=== PATIENT | female | born 1975 | race Caucasian/White ===

== ENCOUNTER 2017-12-21 01:45 | Emergency (ER) | payer MEDICAID, OTHER ==
[~2017-12-21] VITALS: Ht 152.4 cm; Wt 63.6 kg
[~2017-12-21 01:45] MED LIST: ALBU8.5H5 INH; FEXO1TAB29 PO; MONT10TA9 PO; TRIA10.8 INH
[2017-12-21] MEDS ORDERED: PROMETHAZINE 25 MG/ML, 1ML IM ONE (03:00)
[2017-12-21] MEDS ORDERED: SODIUM CHLORIDE 0.9% 1,000ML IVBOLUS ONE (03:00)
[2017-12-21 03:33] LABS: BASOPHILS % (AUTO) 0 % (0-1); EOSINOPHILS % (AUTO) 0 % (1-7); LYMPHOCYTES # (AUTO) 0.55 x10^3/uL (1-3.4); LYMPHOCYTES % (AUTO) 6 % (22-44); MEAN CORPUSCULAR HEMOGLOBIN 27.7 pg (27.0-34.8); MEAN CORPUSCULAR HGB CONC 32.6 g/dL (32.4-35.8); MEAN PLATELET VOLUME 7.4 fL (7.4-10.4); MONOCYTES # (AUTO) 0.37 x10^3/uL (0.2-0.8); MONOCYTES % (AUTO) 4 % (2-9); NEUTROPHILS # (AUTO) 7.87 x10^3/uL (1.8-6.8); NEUTROPHILS % (AUTO) 89 % (42-75); PLATELET COUNT 277 x10^3/uL (130-400); RED CELL DISTRIBUTION WIDTH 18.8 % (9.6-15.2)
[2017-12-21 03:34] LABS: EOSINOPHILS # (AUTO) 0.01 x10^3/uL (0-0.4); MD NO
[2017-12-21 03:35] LABS: HCG UR SG 1.029 (1.003-1.030)
[2017-12-21 03:37] LABS: MICROSCOPIC INDICATED
[2017-12-21 03:43] LABS: ANION GAP 10 mmol/L (5-15); CALCIUM 8.7 mg/dL (8.5-10.1); CHLORIDE 110 mmol/L (98-107); CREATININE 0.68 mg/dL (0.55-1.02)
[2017-12-21] MEDS ORDERED: PROMETHAZINE 25 MG/ML, 1ML ONE (03:45)
[2017-12-21 04:09] LABS: CULTURE INDICATED? YES
[2017-12-21 05:13] VITALS: BP 107/66
== END 2017-12-21 05:15 | disposition home or self-care (01) ==
LOC: ED 03:13
DX: R42 Dizziness and giddiness (principal); E86.0 Dehydration; F17.210 Nicotine dependence, cigarettes, uncomplicated; R82.99 Other abnormal findings in urine
CPT/HCPCS: 36415; 80048; 81001; 81025; 85025; 87086; 93005; 96360; 96372; 99285; J2550; J7030

== ENCOUNTER 2020-06-29 14:39 | Emergency (ER) | payer MEDICAID ==
[~2020-06-29] VITALS: Ht 149.9 cm; Wt 55.0 kg
[~2020-06-29 14:39] MED LIST changes: +MONT10TA11 PO; -MONT10TA9 PO
--- NOTE | 2020-06-29 14:49 | NUR ---
CALLED FOR TRIAGE, NO ANSWER
--- NOTE | 2020-06-29 15:13 | NUR ---
PATIENT WALKED BACK FROM TRIAGE WITH CHIEF C/O SORE THROAT, BODY ACHES, SOB, AND ABD PAIN X3 DAYS. PATIENT WAS SEEN YESTERDAY AT [facility] FOR SAME SYMPTOMS. NO COVID SWAB COLLECTED PER SISTER AT BEDSIDE. PER SISTER PATIENT HAS HX OF ETOH, LAST DRINK WAS THIS MORNING AROUND 1100. PATIENT WAS HAVING SOME ANXIETY TODAY AND WAS GIVEN [address] [facility] PROVIDER, 1 DOSE TAKEN ABOUT AN HOUR AGO PER SISTER. PATIENT IS LYING FACE DOWN ON GURNEY, EASILY AROUSED TO ROLL OVER FOR VITALS. NO SIGNS OF ACUTE DISTRESS.
[2020-06-29] MEDS ORDERED: GABAPENTIN PO (15:27)
[2020-06-29] MEDS ORDERED: SERT25TA3 PO (15:27)
[2020-06-29] MEDS ORDERED: LEVO50TA5 PO (15:27)
[2020-06-29] MEDS ORDERED: OMEP20CA20 PO (15:27)
[2020-06-29] MEDS ORDERED: PROP10TA51 PO (15:27)
--- NOTE | 2020-06-29 15:35 | NUR ---
PATIENT AMBULATED TO RESTROOM WITH ASSISTANCE OF SISTER.
--- NOTE | 2020-06-29 16:03 | NUR ---
REILLY Hook at bedside for evaluation.
--- NOTE | 2020-06-29 16:13 | NUR ---
Break RN note: Pt resting in bed, pt reports position of comfort is lying on her stomach. Pt's resp even and unlabored. Pt's sister at bedside for support.
--- NOTE | 2020-06-29 16:30 | NUR ---
Break RN note: Dr. Hook at bedside to perform COVID swab.
[2020-06-29 17:16] LABS: ALANINE AMINOTRANSFERASE 42 U/L (12-78); ALBUMIN 3.6 g/dL (3.4-5.0); ANION GAP 11 mmol/L (5-15); CALCIUM 8.8 mg/dL (8.5-10.1); CHLORIDE 108 mmol/L (98-107); CREATININE 0.65 mg/dL (0.55-1.02)
[2020-06-29 17:19] LABS: BASOPHILS # (AUTO) 0.01 x10^3/uL (0-0.1); BASOPHILS % (AUTO) 0 % (0-1); EOSINOPHILS # (AUTO) 0.02 x10^3/uL (0-0.4); EOSINOPHILS % (AUTO) 0 % (1-7); LYMPHOCYTES # (AUTO) 2.01 x10^3/uL (1-3.4); LYMPHOCYTES % (AUTO) 42 % (22-44); MD NO; MEAN CORPUSCULAR HGB CONC 31.2 g/dL (32.4-35.8); MONOCYTES # (AUTO) 0.33 x10^3/uL (0.2-0.8); MONOCYTES % (AUTO) 7 % (2-9); NEUTROPHILS # (AUTO) 2.41 x10^3/uL (1.8-6.8); NEUTROPHILS % (AUTO) 50 % (42-75); PLATELET COUNT 304 x10^3/uL (130-400); RED CELL DISTRIBUTION WIDTH 16.8 % (9.6-15.2)
[2020-06-29 17:20] LABS: ALKALINE PHOSPHATASE 117 U/L (45-117); BILIRUBIN,TOTAL 0.3 mg/dL (0.2-1.0); TOTAL PROTEIN 7.3 g/dL (6.4-8.2)
[2020-06-29 17:26] VITALS: BP 120/70
--- NOTE | 2020-06-29 17:26 | NUR ---
PATIENT SLEEPING IN GURNEY, CONNECTED TO VITALS MACHINE, CALL LIGHT WITHIN REACH, SISTER AT BEDSIDE.
--- NOTE | 2020-06-29 18:22 | NUR ---
REILLY POLLOCK AT BEDSIDE TO DISCUSS POC
--- NOTE | 2020-06-29 18:34 | NUR ---
Discharge instructions reviewed.
== END 2020-06-29 18:41 | disposition home or self-care (01) ==
LOC: ED 17:07
DX: F10.220 Alcohol dependence with intoxication, uncomplicated (principal); J45.909 Unspecified asthma, uncomplicated; Z20.828 Contact with and (suspected) exposure to other viral communicable diseases; J02.9 Acute pharyngitis, unspecified; R06.02 Shortness of breath; M79.10 Myalgia, unspecified site; Z90.49 Acquired absence of other specified parts of digestive tract; Y90.0 Blood alcohol level of less than 20 mg/100 ml
CPT/HCPCS: 36415; 71045; 80053; 80307; 85025; 87635; 99284

== ENCOUNTER 2020-09-23 16:04 | Emergency (ER) | payer MEDICAID ==
[~2020-09-23] VITALS: Ht 157.5 cm; Wt 56.0 kg
[~2020-09-23 16:04] MED LIST changes: +GABAPENTIN PO; +LEVO50TA5 PO; -MONT10TA11 PO; +MONT10TA96 PO; +OMEP20CA20 PO; +PROP10TA51 PO; +SERT25TA3 PO
--- NOTE | 2020-09-23 16:30 | NUR ---
PT BIB DAUGHTER VIA POV. PER DAUGHTER PT DRANK 1 BOTTLE OF RUBBING ALCOHOL. PER DAUGHTER PT WAS D/C'D FROM [place] A FEW DAYS AGO FOR SI. PT STATES SHE WAS SUICIDAL YESTERDAY BUT DOES NOT HAVE A PLAN AND DOESN'T WANT TO HURT HERSELF TODAY.
[2020-09-23 16:53] LABS: ALANINE AMINOTRANSFERASE 57 U/L (12-78); ALBUMIN 3.8 g/dL (3.4-5.0); ANION GAP 7 mmol/L (5-15); CALCIUM 9.3 mg/dL (8.5-10.1); CHLORIDE 104 mmol/L (98-107)
--- NOTE | 2020-09-23 16:55 | NUR ---
PT'S DAUGHTER ALSO STATING THAT PT TRIED TO JUMP OUT OF CAR ON THE WAY HERE. [facility] PER PT NO NEEDS. URINE SPECIMEN COLLECTED AND SENT TO LAB, WILL CONTINUE TO MONITOR.
[2020-09-23 16:59] LABS: ALKALINE PHOSPHATASE 103 U/L (45-117); BILIRUBIN,TOTAL 0.7 mg/dL (0.2-1.0); CREATININE 1.81 mg/dL (0.55-1.02); TOTAL PROTEIN 7.2 g/dL (6.4-8.2)
[2020-09-23 17:01] LABS: SALICYLATE LEVEL < 1.7 mg/dL (2.8-20.0)
[2020-09-23 17:05] LABS: BASOPHILS % (AUTO) 0 % (0-1); EOSINOPHILS % (AUTO) 0 % (1-7); LYMPHOCYTES % (AUTO) 20 % (22-44); MEAN CORPUSCULAR HGB CONC 32.6 g/dL (32.4-35.8); MEAN PLATELET VOLUME 7.3 fL (7.4-10.4); MONOCYTES % (AUTO) 5 % (2-9); NEUTROPHILS % (AUTO) 74 % (42-75); PLATELET COUNT 188 x10^3/uL (130-400); RED BLOOD COUNT 4.26 x10^6/uL (3.82-5.3); RED CELL DISTRIBUTION WIDTH 21.4 % (9.6-15.2)
[2020-09-23 17:07] LABS: MICROSCOPIC AUTO
[2020-09-23 17:10] LABS: MD MORPH REVIEW ONLY
[2020-09-23 17:11] LABS: <PLATELET ESTIMATE> ADEQUATE; <PLT MORPHOLOGY> NORMAL PLT MORPH; ANISOCYTOSIS 1+
[2020-09-23 17:15] LABS: AMPHETAMINE SCREEN, URINE Negative (Negative); BARBITURATE SCREEN, URINE Negative (Negative); BENZODIAZEPINE SCREEN, URINE Negative (Negative); CANNABINOID SCREEN, URINE Positive (Negative); COCAINE SCREEN, URINE Negative (Negative); METHADONE SCREEN, URINE Negative (Negative); OPIATE SCREEN, URINE Negative (Negative)
[2020-09-23] MEDS ORDERED: OXYcodone/APAP 10/325MG TABLET ONE (17:59)
[2020-09-23] MEDS ORDERED: POTASSIUM CHLORIDE 20 MEQ PACKET PO ONE (18:00)
[2020-09-23] MEDS ORDERED: POTASSIUM CHLORIDE 40 MEQ in SODIUM CHLORIDE 0.9% 500 ML IV ONE (18:30)
[2020-09-23 18:53] LABS: ACETONE, SERUM Large (80mg/dL) (Negative)
--- NOTE | 2020-09-23 19:40 | NUR ---
TP: PACKET FAXED TO [facility], [facility].
--- NOTE | 2020-09-23 19:45 | NUR ---
AARON RN: [facility] IS FULL AT THIS TIME.
--- NOTE | 2020-09-23 21:50 | NUR ---
RICHAR CASTILLO, CALLED FOR REPORT. GENE STATES PT IS ACCEPTED AND CAN COME ANYTIME AFTER 0100. DR. WRIGHT ACCEPTING.
--- NOTE | 2020-09-23 22:21 | NUR ---
PT RESTING IN [facility] AT THIS TIME. PT NOW ANSWERING QUESTIONS. A&OX4 AT THIS TIME. WILL CONTINUE TO MONITOR.
--- NOTE | 2020-09-23 22:41 | NUR ---
TASK RN: PACKET FAXED TO [facility].
--- NOTE | 2020-09-23 22:45 | NUR ---
TASK RN: [facility] SET UP FOR 010.
[2020-09-24 00:49] VITALS: BP 115/78
== END 2020-09-24 00:48 ==
LOC: ED 17:54
DX: R45.851 Suicidal ideations (principal); T51.91XA Toxic effect of unspecified alcohol, accidental (unintentional), initial encounter; E87.6 Hypokalemia
CPT/HCPCS: 36415; 71045; 80053; 80299; 80307; 80320; 80329; 81001; 82010; 83605; 84443; 84703; 85025; 93005; 96365; 96366; 99285; J3480; J7040; G0480